=== PATIENT | female | born 1980 | race Caucasian/White ===

== ENCOUNTER 2016-11-11 01:19 | Emergency (ER) | payer BC ==
[2016-11-11] MEDS ORDERED: Ketorolac 60 MG/2 ML SDV IM ONE (01:36)
[2016-11-11 02:40] VITALS: BP 107/53
--- NOTE | 2016-11-12 03:15 | ER ---
DATE SEEN: 11/11/2016 She was seen at 0230 hours. HISTORY AND PHYSICAL: This 35-year-old woman had been out dancing and drinking and she has left knee pain. MEDICATIONS: 1. Zantac. 2. Dextroamphetamine. 3. Amphetamine. 4. Adderall XR 10 mg. REVIEW OF SYSTEMS: Negative. No previous surgeries, other serious illnesses, or hospitalizations. PHYSICAL EXAMINATION: VITAL SIGNS: Blood pressure 123/64, heart rate 98, respirations 18, oxygen saturation 98%, temperature 36.6 degrees centigrade. CONSTITUTIONAL: The patient looks tired, distraught, washed out, poor hygiene, and somewhat disheveled hair and eyes/ sclerae are mildly injected. She is socially present with presumably her mother. HEENT: Pharynx without abnormality. Mouth is moist. NECK: Supple. No thyromegaly or masses in the neck. No cervical adenopathy. LUNGS: Clear to auscultation without rales, rhonchi, or wheezes. Moderate smoking odor noted. ABDOMEN: Soft. No guarding. No abdominal discomfort. No chest wall discomfort. EXTREMITIES: Upper extremities without abnormality. Lower extremities, left knee exam: No effusion. No recent decreased range of motion. No instability with collateral ligament stress testing. Jamal maneuver is negative. Pallavi maneuver is negative. Joint lines are nontender. No popliteal swelling. No pain in the gastrocs. No ecchymosis or swelling. There is no even limp with walking. ASSESSMENT: 1. Left leg knee ligamentous strain secondary to dancing and drinking alcohol. 2. Alcohol intoxication with mild inebriation presently. PLAN: X-rays negative. No evidence for effusion or fracture. Reassured the patient. Use ibuprofen and Tylenol. Follow up with doctor in a week. DIAGNOSES: 1. Muscle strain, left leg and knee. No evidence for internal knee derangement. 2. Knee pain secondary to strained ligaments. /[id number] IVONNE/PORTER CURTISD
--- NOTE | 2016-11-12 12:19 | CR ---
INDICATION: Pain, no specific injury. LEFT KNEE: Three views of the left knee were obtained and revealed prominence at the suprapatellar bursa, suggesting a moderate sized knee joint effusion. There is some irregularity at the lateral femoral condyle, raising question of an area of aseptic necrosis - possibly previous osteochondral chip fracture fragment in that area. This could be confirmed by CT or MRI as felt to be clinically necessary. The joint spaces appear to be fairly well maintained. No significant hypertrophic degenerative changes were noted. IMPRESSION: Knee joint effusion with possible osteochondral chip fracture fragment at the lateral femoral condyle. Report was called to Dr. Sage at [address] Burden. [facility]ITALBinu
--- NOTE | 2016-11-12 13:22 | EDM.PDOC ---
ED HPI GENERAL MEDICAL PROBLEM - General Chief Complaint: Lower Extremity Injury/Pain Stated Complaint: KNEE PAIN L knee Pain Score (Numeric/FACES): 3 - Related Data Allergies Allergy/AdvReac Type Severity Reaction Status Date / Time No Known Allergies Allergy Verified 11/11/16 01:34 Home Meds: Home Meds Dextroamphetamine/Amphetamine [Adderall Xr 10 mg Capsule] 10 mg DAILY 11/11/16 [ History] Ranitidine [Zantac] 150 mg PO BID 11/11/16 [History] Past Medical History Gastrointestinal History: Reports: Other (See Below) Other Gastrointestinal History: exp lap Genitourinary History: Reports: Other (See Below) Other Genitourinary History: bladder scope, is having PT to loosen bladder muscles Psychiatric History: Reports: ADD Endocrine/Metabolic History: Reports: Obesity/BMI 30+ - Infectious Disease History Infectious Disease History: Reports: Chicken Pox - Past Surgical History Female Surgical History: Reports: Hysterectomy, Oophorectomy Musculoskeletal Surgical History: Reports: Arthroscopic Knee Other Musculoskeletal Surgeries/Procedures:: R knee scope Social & Family History - Family History Family Medical History: Noncontributory - Tobacco Use Smoking Status *Q: Never Smoker - Caffeine Use Caffeine Use: Reports: Coffee, Soda - Recreational Drug Use Recreational Drug Use: No Course - Vital Signs Last Recorded V/S: Last Vital Signs Temp 36.6 C 11/11/16 01:25 Pulse 98 11/11/16 01:25 Resp 18 11/11/16 02:39 BP 107/53 L 11/11/16 02:39 Pulse Ox 99 11/11/16 02:39 - Orders/Labs/Meds Meds: Medications Discontinued Medications Generic Name Dose Route Start Last Admin Trade Name Patricia PRN Reason Stop Dose Admin Ketorolac Tromethamine 60 mg 11/11/16 01:36 11/11/16 01:50 Toradol IM 11/11/16 01:37 60 mg ONETIME ONE Administration Departure - Departure Disposition: Home, Self-Care 01 - Discharge Information Instructions: Knee Sprain, [id number] Referrals: PCP,None [Primary Care Provider] - Forms: ED Department Discharge Additional Instructions: YOU HAVE A LEFT KNEE SPRAIN, NO SUBLUXATION, MENISCAL TEAR OR INTERNAL KNEE DERANGEMENT USE 1000 MG TYLENOL AND 600 MG OF IBUPROFEN TOGETHER FOR PAIN FOLLOWO UP WITH YOUR MD NEXT WEEK IF STILL HAVE PERSISTENT PAIN Critical Care Note - Critical Care Note Total Time (mins): 1 Comments: Called patient 11/12/16 regarding X-ray findings. No answer and no answering machine. Time of call 1320h.
--- NOTE | 2016-11-13 13:48 | PCM.SN ---
- Free Text/Narrative Note: Attempted to call on 11/12/16 regarding labs that came back after being ordered by Dr. Burden. There was no answer at at the listed number and no answering machine.
== END 2016-11-11 02:43 | disposition home or self-care (01) ==
LOC: FB.ED 01:19
DX: S86.912A Strain of unspecified muscle(s) and tendon(s) at lower leg level, left leg, initial encounter (principal); F10.129 Alcohol abuse with intoxication, unspecified; X50.1XXA Overexertion from prolonged static or awkward postures, initial encounter
CPT/HCPCS: 73562; 96372; 99283; J1885